=== PATIENT | female | born 1980 | race African-American/Black ===

== ENCOUNTER 2016-05-08 05:16 | Emergency (ER) | payer MEDICAID ==
[2016-05-08] MEDS ORDERED: IBUPROFEN 800 MG TAB PO ONE (05:27)
[2016-05-08 05:30] VITALS: BMI 40.6
--- NOTE | 2016-05-08 05:30 | EDPRACDOC ---
- History of Present Illness Onset: ONE MONTH Description: Reports: Spontaneous Location: Reports: Internal Vagina Relevant History: Denies: Currently Pain Severity: Mild # Pads Used in the Last 12/24 Hours: 4-5 PADS PER 24 HOUR Associated Signs & Symptoms: Reports: Dysuria (AND RIGHT FLANK PAIN), Frequency , Urgency, Vaginal Bleeding (CLOTS FOR ONE MONTH). Denies: Faintness, Abdominal Pain, Nausea, Vomiting Other History: SEEN PCP FOR SAME, GIVE "A SHOT" <Tayla Mcneil - Last Filed: 05/08/16 06:59> <Mauro Rebolledo - Last Filed: 05/08/16 08:09> - General Information Stated Complaint: VAGINAL BLEED/ RT FLANK PAIN Time Seen by Provider: 05/08/16 05:23 Home Medications: Home Medications Ibuprofen Tablet [Motrin] 800 mg PO TID #30 tab 05/08/16 Medroxyprogesterone Acet [Provera] 10 mg PO DAILY #10 tablet 05/08/16 Allergies/Adverse Reactions: Allergies Allergy/AdvReac Type Severity Reaction Status Date / Time No Known Allergies Allergy Verified 05/08/16 07:58 ED Past Medical History - History Reviewed Yes Nurses notes reviewed and agree except as marked - Patient Medical History Respiratory History: Reports: Asthma Psychological History: Denies: Depression Systemic History: Reports: Diabetes - Social Medical History Smoking Status: Heavy tobacco smoker (5 or more cigarettes/day or daily pipe/ cigar) <Tayla Mcneil - Last Filed: 05/08/16 06:59> EDM Review of Systems - Review of Systems ROS Negative Except as Marked: Yes All systems reviewed and were negative except as marked <Tayla Mcneil - Last Filed: 05/08/16 06:59> - Physical Exam Constitutional: No apparent distress, Alert Last recorded Vital Signs: Oxygen Pulse Oxygen Saturation O2 Device Oxygen Flow Rate Fraction of Inspired Oxygen ( FIO2) - HEENT Eye Exam: Normal. negative: Pale Conjunctiva (NO INDICATION OF ANEMIA) Nose: No Symptoms Reported - Respiratory/Cardiovascular Respiratory: Normal - CTA Cardiovascular: Normal - GI Auscultation: Normal Palpation: Normal Tenderness: Non tender - Bladder: Normal External: Normal Vagina: Blood (SMALL AMOUNT) Cervix: Normal. negative: Tenderness Uterus: Normal size Adnexa: Bilateral: Normal - Musculoskeletal Back: Normal. negative: CVA Tenderness <Tayla Mcneil - Last Filed: 05/08/16 06:59> - Physical Exam Last recorded Vital Signs: Last Vital Signs Temp 98.6 F 05/08/16 05:27 Pulse 59 L 05/08/16 07:34 Resp 18 05/08/16 07:34 BP 150/80 05/08/16 07:34 Pulse Ox 97 05/08/16 07:34 Oxygen Pulse Oxygen Saturation 97 O2 Device Room Air Oxygen Flow Rate Fraction of Inspired Oxygen ( FIO2) <Mauro Rebolledo - Last Filed: 05/08/16 08:09> - Re-evaluation Re-evaluation 2 Re-evaluation Time: 06:22 (RIGHT FLANK PAIN INCREASING IN INTENSITY. CATH UA SHOWS GROSS MUCUS AND HEMATURIA. WILL ADVANCE PAIN MEDS, PLAN CT URO IF NOT PREG.) Re-evaluation 3 Re-evaluation Time: 06:59 (PAIN IMPROVED, COMFORTABLE, NO HYPOXIA. CARE ENDORSED TO DR REBOLLEDO) <Tayla Mcneil - Last Filed: 05/08/16 06:59> - Results Urine Color Grossly bloody 05/08/16 06:20 Urine Clarity Opaque 05/08/16 06:20 Urine pH 6.0 (5.0-8.0) 05/08/16 06:20 Ur Specific Model 1.030 (1.003-1.035) 05/08/16 06:20 Urine Protein 3+ (NEG/TRACE) H 05/08/16 06:20 Urine Glucose (UA) Neg (NEGATIVE) 05/08/16 06:20 Urine Ketones Neg (NEGATIVE) 05/08/16 06:20 Urine Occult Blood 3+ (NEG/TRACE) H 05/08/16 06:20 Urine Nitrite Neg (NEGATIVE) 05/08/16 06:20 Urine Bilirubin Neg (NEGATIVE) 05/08/16 06:20 Urine Urobilinogen <2.0 MG/DL (0-1) 05/08/16 06:20 Ur Leukocyte Esterase 2+ (NEGATIVE) H 05/08/16 06:20 Urine RBC Tntc (0-5) H 05/08/16 06:20 Urine WBC 10-20 (0-5) H 05/08/16 06:20 Urine Bacteria 1+ (NEG/FEW) H 05/08/16 06:20 Urine Mucus Mod (NEG/OCC) H 05/08/16 06:20 Urine Test Neg (NEGATIVE) 05/08/16 06:20 Microbiology 05/08/16 06:20 Trichomonas [place] - Final Vaginal 05/08/16 06:20 JENNYFER Preparation - Final Vaginal Lab Results 05/08/16 05/08/16 06:20 06:20 Urine Color Grossly bloody Urine Clarity Opaque Urine pH 6.0 Ur Specific Model 1.030 Urine Protein 3+ H Urine Glucose (UA) Neg Urine Ketones Neg Urine Occult Blood 3+ H Urine Nitrite Neg Urine Bilirubin Neg Urine Urobilinogen <2.0 Ur Leukocyte Esterase 2+ H Urine RBC Tntc H Urine WBC 10-20 H Urine Bacteria 1+ H Urine Mucus Mod H Urine Test Neg <Mauro Rebolledo - Last Filed: 05/08/16 08:09> - Departure Disposition: Home Education/Counseling Given To: Patient Education/Counseling Given Regarding: Diagnosis, Treatment, Prognosis <Tayla Mcneil - Last Filed: 05/08/16 06:59> Decision Time to Discharge: 08:08 - Departure Yes I personally saw and evaluated the patient. Disposition: Home <Mauro Rebolledo - Last Filed: 05/08/16 08:09> - Departure Condition: Stable Final Diagnosis: Dysfunctional uterine bleeding, Hematuria, URETEROLITHIASIS Instructions: Dysfunctional Uterine Bleeding (ED) Referrals: None,No Provider [NonStaff] - One Week Shashi Yo MD [Staff Physician] - One Week Prescriptions: New Ibuprofen Tablet [Motrin] 800 mg PO TID #30 tab Medroxyprogesterone Acet [Provera] 10 mg PO DAILY #10 tablet Additional Instructions: Return to the Emergency Deparment for increasing or different abdominal pain, vaginal bleeding that soaks two pads per hour for two hours, feeling like you might pass out, or any concerns.
[2016-05-08] MEDS ORDERED: HYDROmorphone 1 MG INJECTION IM ONE (06:21)
[2016-05-08] MEDS ORDERED: OXYCODONE HCL 5 MG TABLET PO ONE (06:21)
[2016-05-08 07:34] LABS: LEUKOCYTES/URINE 2+ (NEGATIVE); NITRITE/URINE NEG (NEGATIVE); RBC/URINE TNTC (0-5); URINE OCCULT BLOOD 3+ (NEG/TRACE)
--- NOTE | 2016-05-08 08:07 | DIRPT ---
CLINICAL DATA: Right flank pain with nausea for 1 day EXAM: CT ABDOMEN AND PELVIS WITHOUT CONTRAST TECHNIQUE: Multidetector CT imaging of the abdomen and pelvis was performed following the standard protocol without oral or intravenous contrast material administration. COMPARISON: None. FINDINGS: Lower chest: Lung bases are clear. Hepatobiliary: No focal liver lesions are identified on this noncontrast study. There is no appreciable gallbladder wall thickening. There is no biliary duct dilatation. Pancreas: No mass or inflammatory focus appreciable in the pancreas. Spleen: No splenic lesions are identified. Adrenals/Urinary Tract: Adrenals appear normal bilaterally. There is no renal mass or hydronephrosis on either side. There is no intrarenal calculus on either side. There is no ureteral calculus on the left. On the right, there is a 1 mm calculus at the right ureterovesical junction. There are several nearby phleboliths which are felt to be separate from the right ureter distally. The urinary bladder is midline with wall thickness within normal limits. Stomach/Bowel: There is no appreciable bowel wall or mesenteric thickening. There is no demonstrable bowel obstruction. No free air or portal venous air. Vascular/Lymphatic: There is no appreciable abdominal aortic aneurysm. No vascular lesions are appreciable on this noncontrast enhanced study. There is no demonstrable adenopathy in the abdomen or pelvis. Reproductive: Uterus is anteverted. There is no pelvic mass or pelvic fluid collection. Other: Appendix appears normal. There is no abscess or ascites in the abdomen or pelvis. Musculoskeletal: There are no blastic or lytic bone lesions. There is no intramuscular or abdominal wall lesion. IMPRESSION: 1 mm calculus right ureterovesical junction, best seen on axial slice 74 series 3 and coronal slice 51 series 601. No appreciable hydronephrosis on the right. No other ureteral calculi apparent. No intrarenal calculus on either side. No bowel obstruction. No abscess. Appendix appears normal. Electronically Signed By: Tad Aly III, M.D. On: 05/08/2016 08:04
[2016-05-08 08:47] VITALS: BP 119/67; PULSE 60; TEMP 97.7
[2016-05-10 06:41] LABS: CHLAMY BY NUCLEIC ACID AMP Negative (Negative)
[2016-05-10 07:47] LABS: GC BY NUCLEIC ACID AMP Negative (Negative)
== END 2016-05-08 08:08 | disposition home or self-care (01) ==
LOC: ED 05:16
DX: N93.8 Other specified abnormal uterine and vaginal bleeding (principal); R31.9 Hematuria, unspecified; N20.1 Calculus of ureter; J45.909 Unspecified asthma, uncomplicated; E11.9 Type 2 diabetes mellitus without complications; F17.200 Nicotine dependence, unspecified, uncomplicated
CPT/HCPCS: 74176; 81001; 81025; 87210; 87220; 87491; 87591; 96372; 99284; J1170; J3490